=== PATIENT | male | born 1990 | race Caucasian/White ===

== ENCOUNTER 2016-10-30 18:10 | Emergency (ER) | payer SELFPAY ==
[2016-10-30] MEDS ORDERED: METOCLOPRAMIDE 10 MG/2 ML VIAL ONE (22:25)
[2016-10-30] MEDS ORDERED: KETOROLAC 30 MG/ML VIAL ONE (22:26)
[2016-10-30] MEDS ORDERED: DIPHENHYDRAMINE 50 MG/ML VIAL ONE (22:26)
[2016-10-30] MEDS ORDERED: SODIUM CHLORIDE 0.9% 1,000 ML ONE (22:26)
== END 2016-10-30 22:47 | disposition home or self-care (01) ==
LOC: ER 18:10
DX: G44.319 Acute post-traumatic headache, not intractable (principal); Y04.2XXA Assault by strike against or bumped into by another person, initial encounter; Z02.89 Encounter for other administrative examinations; F17.290 Nicotine dependence, other tobacco product, uncomplicated
CPT/HCPCS: 36415; 70450; 85025; 85610; 85730; 96361; 96374; 96375